=== PATIENT | female | born 1940 | race Native Hawaiian/Other Pacific Islander ===

== ENCOUNTER 2017-01-08 07:00 | Day surgery (SDC) | payer OTHER ==
[2017-01-08 08:55] LABS: PLATELET COUNT 281 K/uL (152-353)
[2017-01-08 09:23] LABS: POTASSIUM 3.7 mmol/L (3.6-5.2); SODIUM 136 mmol/L (136-145)
== END 2017-01-08 14:15 | disposition home or self-care (01) ==
LOC: OR 07:00
PROVIDERS: Student in an Organized Health Care Education/Training Program
PROC: 0DB68ZZ Excision of Stomach, Via Natural or Artificial Opening Endoscopic (ICD-10-PCS; principal; 2017-01-08)
PROC: 0D758ZZ Dilation of Esophagus, Via Natural or Artificial Opening Endoscopic (ICD-10-PCS; 2017-01-08)
DX: K29.60 Other gastritis without bleeding (principal); K31.7 Polyp of stomach and duodenum; K44.9 Diaphragmatic hernia without obstruction or gangrene; K22.2 Esophageal obstruction
CPT/HCPCS: 80053; 85027; J2001; J2704; J3490

== ENCOUNTER 2019-04-23 07:22 | Day surgery (SDC) | payer OTHER | END 2019-04-23 11:59 | disposition home or self-care (01) | LOC: OR 07:22 | PROC: 0DBK8ZZ Excision of Ascending Colon, Via Natural or Artificial Opening Endoscopic (ICD-10-PCS; principal; 2019-04-23) | PROC: 0DBL8ZZ Excision of Transverse Colon, Via Natural or Artificial Opening Endoscopic (ICD-10-PCS; 2019-04-23) | PROC: 0DBM8ZZ Excision of Descending Colon, Via Natural or Artificial Opening Endoscopic (ICD-10-PCS; 2019-04-23) | DX: D12.2 Benign neoplasm of ascending colon (principal); D12.4 Benign neoplasm of descending colon; D12.3 Benign neoplasm of transverse colon; K57.30 Diverticulosis of large intestine without perforation or abscess without bleeding; K64.8 Other hemorrhoids; Z86.010 Personal history of colon polyps; Z12.11 Encounter for screening for malignant neoplasm of colon | CPT/HCPCS: J2001; J2250; J2405; J2704 ==

== ENCOUNTER 2020-12-26 11:59 | Outpatient (CLI) | payer OTHER | END 2020-12-26 19:25 | disposition home or self-care (01) | LOC: RAD 11:59 | PROVIDERS: ATTEND Nurse Practitioner Family | DX: M79.671 Pain in right foot (principal) ==